=== PATIENT | female | born 1950 | race African-American/Black ===

== ENCOUNTER 2016-09-14 20:51 | Outpatient (CLI) | payer OTHER ==
[~2016-09-14 20:51] MED LIST: CYCL10TA35 PO; GABA300C2 PO; HUMALOG100 MG/ML SC; HYDR10TA47 PO; LANTUS100 MG/ML SC; METO50TA27 PO; PREDNISONE5 M1 PO; SIMV40TA57 PO
[2016-09-15] MEDS ORDERED: METO50TA27 PO (00:17)
[2016-09-15] MEDS ORDERED: OXYB5TAB56 PO (00:18)
[2016-09-15] MEDS ORDERED: FORTAMET1000 MG PO (00:18)
[2016-09-15] MEDS ORDERED: CYCL10TA35 PO (00:19)
[2016-09-15] MEDS ORDERED: GABA300C2 PO (00:19)
[2016-09-15] MEDS ORDERED: TEMA30CA18 PO (00:20)
[2016-09-15] MEDS ORDERED: TRAMADOL HCL E100 MG PO (00:20)
[2016-09-15] MEDS ORDERED: SMZ-TMP DS1 TAB OR (00:21)
[2016-09-15] MEDS ORDERED: SIMV40TA57 PO (00:22)
[2016-09-15] MEDS ORDERED: MELOXICAM15 MG OR (00:22)
[2016-09-15] MEDS ORDERED: ALLO300T23 PO (00:22)
[2016-09-15] MEDS ORDERED: TYLENOL 8 HOUR650 MG PO (00:22)
[2016-09-15] MEDS ORDERED: BUT OR (00:23)
[2016-09-15] MEDS ORDERED: CAFF OR (00:23)
[2016-09-15] MEDS ORDERED: ASA OR (00:23)
[2016-09-15] MEDS ORDERED: AMITRIPTYLIN50 MG PO (00:24)
[2016-09-15] MEDS ORDERED: CITALOPRAM40 MG PO (00:24)
[2016-09-15] MEDS ORDERED: ALAVERT10 M2 PO (00:25)
[2016-09-15] MEDS ORDERED: HYDROCHLOROT12.5 M1 PO (00:25)
[2016-09-15] MEDS ORDERED: LEVAQUIN500 MG OR (00:28)
[2016-09-15] MEDS ORDERED: ALBU90AE13 INH (00:29)
[2016-09-15] MEDS ORDERED: INSU100P SC (00:30)
[2016-09-15] MEDS ORDERED: INSUINJP SC (00:30)
== END 2016-09-14 21:10 | disposition short-term general hospital (02) ==
LOC: AMB 20:51
DX: R42 Dizziness and giddiness (principal); R11.2 Nausea with vomiting, unspecified; R10.84 Generalized abdominal pain
CPT/HCPCS: A0425; A0427

== ENCOUNTER → 2016-09-19 17:24 | Outpatient (CLI) | payer OTHER ==
[~2016-09-19 17:24] MED LIST changes: +ALAVERT10 M2 PO; +ALBU90AE13 INH; +ALLO300T23 PO; +AMITRIPTYLIN50 MG PO; +ASA OR; +BUT OR; +CAFF OR; +CITALOPRAM40 MG PO; +FORTAMET1000 MG PO; +HYDROCHLOROT12.5 M1 PO; +INSU100P SC; +INSUINJP SC; +LEVAQUIN500 MG OR; +MELOXICAM15 MG OR; +OXYB5TAB56 PO; +SMZ-TMP DS1 TAB OR; +TEMA30CA18 PO; +TRAMADOL HCL E100 MG PO; +TYLENOL 8 HOUR650 MG PO
== END | disposition home or self-care (01) ==
LOC: AMB 17:24
DX: R55 Syncope and collapse (principal)

== ENCOUNTER 2016-11-04 10:44 | Inpatient (IN) | payer OTHER ==
[~2016-11-04] VITALS: Ht 152.4 cm; Wt 93.9 kg
[2016-11-04] VITALS (21 sets, daily range): BP systolic 134–215; BP diastolic 58–139; TEMP 98–100.1; Ht 152.4 cm; Wt 93.9 kg
[2016-11-04 11:24] LABS: PLATELET COUNT 260 K/uL (152-353)
[2016-11-04 11:28] LABS: POTASSIUM 4.7 mmol/L (3.6-5.2)
[2016-11-04 13:47] LABS: PARTIAL THROMBOPLASTIN TIME 24.7 SECONDS (24.5-33.6)
[2016-11-04 16:32] LABS: POTASSIUM 4.6 mmol/L (3.6-5.2)
[2016-11-04] MEDS ORDERED: ACTOS15 MG OR (19:44)
[2016-11-04] MEDS ORDERED: HYDR10TA47A PO (19:46)
[2016-11-04] MEDS ORDERED: GRALISE600 MG OR (19:47)
[2016-11-04] MEDS ORDERED: MOBIC15 MG PO (19:48)
[2016-11-04 20:13] LABS: POTASSIUM 4.1 mmol/L (3.6-5.2)
[2016-11-05] VITALS (23 sets, daily range): BP systolic 107–174; BP diastolic 62–98; TEMP 97.9–99
[2016-11-05 07:26] LABS: PLATELET COUNT 189 K/uL (152-353)
[2016-11-05 07:35] LABS: POTASSIUM 4.5 mmol/L (3.6-5.2)
[2016-11-05] MEDS ORDERED: INSUINJP SC (17:18)
[2016-11-05] MEDS ORDERED: INSU100P SC (17:19)
[2016-11-06] VITALS (16 sets, daily range): BP systolic 110–176; BP diastolic 62–104; TEMP 97.5–98.2
[2016-11-06 10:58] LABS: PLATELET COUNT 183 K/uL (152-353)
[2016-11-06 11:10] LABS: POTASSIUM 4.3 mmol/L (3.6-5.2)
[2016-11-07 04:00] VITALS: BP 90/50; TEMP 97.6
[2016-11-07 04:18] LABS: PLATELET COUNT 189 K/uL (152-353)
[2016-11-07 04:34] LABS: POTASSIUM 3.8 mmol/L (3.6-5.2)
[2016-11-07 08:00] VITALS: BP 104/56; TEMP 97.4
[2016-11-07 12:00] VITALS: BP 90/52; TEMP 97.3
== END 2016-11-07 15:41 | disposition home or self-care (01) | DRG 638 ==
LOC: ED 10:44 → ICU 12:00 → MED/SURG 11-06 15:40
PROVIDERS: Internal Medicine
DX: E13.10 Other specified diabetes mellitus with ketoacidosis without coma (principal); N18.4 Chronic kidney disease, stage 4 (severe); N17.8 Other acute kidney failure; Z79.4 Long term (current) use of insulin; I12.9 Hypertensive chronic kidney disease with stage 1 through stage 4 chronic kidney disease, or unspecified chronic kidney disease; E11.22 Type 2 diabetes mellitus with diabetic chronic kidney disease; I16.0 Hypertensive urgency; E05.80 Other thyrotoxicosis without thyrotoxic crisis or storm; E83.42 Hypomagnesemia; R19.7 Diarrhea, unspecified
CPT/HCPCS: 36415; 36600; 80048; 80053; 81000; 81002; 82550; 82570; 82805; 82948; 82962; 83036; 83690; 83735; 84100; 84300; 84439; 84443; 84484; 85027; 85610; 85730; 86318; 87040; 93005; 94760; 96372; 96374; 96375; 99284; J0360; J1644; J1650; J1815; J1956; J2405; J3490

== ENCOUNTER 2016-11-10 14:00 | Outpatient (CLI) | payer OTHER ==
[~2016-11-10 14:00] MED LIST changes: +ACTOS15 MG OR; +GRALISE600 MG OR; +HYDR10TA47A PO; +MOBIC15 MG PO
== END 2016-11-10 14:18 | disposition short-term general hospital (02) ==
LOC: AMB 14:00
DX: E11.641 Type 2 diabetes mellitus with hypoglycemia with coma (principal)
CPT/HCPCS: A0425; A0427

== ENCOUNTER 2016-11-10 14:18 | Emergency (ER) | payer OTHER ==
[~2016-11-10] VITALS: Ht 152.4 cm; Wt 90.7 kg
[2016-11-10 14:36] VITALS: TEMP 97.9
[2016-11-10 14:51] LABS: PLATELET COUNT 254 K/uL (152-353)
[2016-11-10 17:54] VITALS: BP 1008/62
== END 2016-11-10 18:00 | disposition home or self-care (01) ==
LOC: ED 14:18
DX: E11.649 Type 2 diabetes mellitus with hypoglycemia without coma (principal); T38.3X5A Adverse effect of insulin and oral hypoglycemic [antidiabetic] drugs, initial encounter; Z79.4 Long term (current) use of insulin; R80.8 Other proteinuria; N18.9 Chronic kidney disease, unspecified
CPT/HCPCS: 36415; 80053; 81000; 83036; 85027; 93005; 99283

== ENCOUNTER 2017-01-26 11:08 | Outpatient (CLI) | payer OTHER | END 2017-01-26 12:10 | disposition home or self-care (01) | LOC: RAD 11:08 | DX: M17.11 Unilateral primary osteoarthritis, right knee (principal) ==

== ENCOUNTER 2017-04-26 15:31 | Inpatient (IN) | payer OTHER ==
[~2017-04-26] VITALS: Ht 152.4 cm; Wt 85.0 kg
[2017-04-26 17:48] LABS: PLATELET COUNT 215 K/uL (152-353)
[2017-04-26 19:56] VITALS: BP 188/89; TEMP 187.7; Ht 152.4 cm; Wt 85.0 kg
[2017-04-26 20:00] VITALS: BP 171/85; TEMP 98.9
[2017-04-27] VITALS: BP 161/76; TEMP 98.7
[2017-04-27 04:00] VITALS: BP 155/72; TEMP 98.9
[2017-04-27 05:20] LABS: PLATELET COUNT 206 K/uL (152-353)
[2017-04-27 05:38] LABS: POTASSIUM 5.9 mmol/L (3.6-5.2)
[2017-04-27 08:00] VITALS: BP 185/92; TEMP 98.4
[2017-04-27 12:00] VITALS: BP 130/82; TEMP 98.4
[2017-04-27 16:00] VITALS: BP 197/96; TEMP 98.8
--- NOTE | 2017-04-27 17:04 | NUR ---
FSBS MACHINE READS HIGH. WILL VERIFY WITH JEWEL. ROSANNA EVANGELISTA DEPUTY SHERIFF K9 HANDLER NOTIFIED. WILL COVER WITH INSULIN 10 UNITS REG.
[2017-04-27 20:00] VITALS: BP 166/87; TEMP 98.3
[2017-04-28] VITALS: BP 120/69; TEMP 97.6
[2017-04-28 04:00] VITALS: BP 116/68; TEMP 97.9
[2017-04-28 06:21] LABS: PLATELET COUNT 213 K/uL (152-353)
[2017-04-28 06:52] LABS: POTASSIUM 4.3 mmol/L (3.6-5.2)
[2017-04-28 08:00] VITALS: BP 149/73; TEMP 98.3
[2017-04-28 12:00] VITALS: BP 128/72; TEMP 98
[2017-04-28 16:00] VITALS: BP 139/7; TEMP 98
[2017-04-28 20:29] VITALS: BP 163/74; TEMP 97.6
[2017-04-29] VITALS: BP 116/69; TEMP 97.8
[2017-04-29 04:00] VITALS: BP 143/74; TEMP 97.7
[2017-04-29 07:43] LABS: PLATELET COUNT 183 K/uL (152-353)
[2017-04-29 08:00] VITALS: BP 132/60; TEMP 97.8
[2017-04-29 12:00] VITALS: BP 132/64; TEMP 98.3
[2017-04-29] MEDS ORDERED: ALBUTEROL0.083 % IN (14:28)
[2017-04-29] MEDS ORDERED: LANTUS100 MG/ML SC (14:28)
== END 2017-04-29 15:25 | disposition home or self-care (01) | DRG 195 ==
LOC: MED/SURG 15:31
PROVIDERS: ADMIT Family Medicine
DX: J16.8 Pneumonia due to other specified infectious organisms (principal); R06.02 Shortness of breath; E11.9 Type 2 diabetes mellitus without complications; I10 Essential (primary) hypertension; Z79.4 Long term (current) use of insulin
CPT/HCPCS: 36415; 36600; 80053; 82805; 82947; 82948; 83880; 85027; 85379; 87040; 93005; 94640; 94664; 94760; 96372; A9540; A9567; J1644; J1815; J2930

== ENCOUNTER 2017-06-02 09:57 | Observation (INO) | payer OTHER ==
[~2017-06-02] VITALS: Ht 152.4 cm; Wt 86.7 kg
[~2017-06-02 09:57] MED LIST changes: +ALBUTEROL0.083 % IN
[2017-06-02 13:20] LABS: PLATELET COUNT 254 K/uL (152-353)
[2017-06-02 13:55] LABS: POTASSIUM 4.3 mmol/L (3.6-5.2)
[2017-06-02 13:57] VITALS: BP 160/97; TEMP 98.2; Ht 152.4 cm; Wt 86.7 kg
[2017-06-02] MEDS ORDERED: DONE5TAB PO (15:07)
[2017-06-02] MEDS ORDERED: CYCL10TA35 PO (15:18)
[2017-06-02] MEDS ORDERED: HYDR-3182 PO (15:25)
[2017-06-02 16:00] VITALS: BP 134/92; TEMP 98.6
[2017-06-02 19:53] VITALS: BP 150/79; TEMP 98.7
[2017-06-03] VITALS: BP 132/72; TEMP 98.4
[2017-06-03 03:54] VITALS: BP 116/75; TEMP 98.8
[2017-06-03 06:31] LABS: PLATELET COUNT 227 K/uL (152-353)
[2017-06-03 06:42] LABS: POTASSIUM 4.3 mmol/L (3.6-5.2)
[2017-06-03 07:40] VITALS: BP 132/71; TEMP 98.5
== END 2017-06-03 12:00 | disposition home or self-care (01) ==
LOC: MED/SURG 09:57
PROVIDERS: Emergency Medicine; ADMIT Nurse Practitioner
DX: K52.89 Other specified noninfective gastroenteritis and colitis (principal); I12.9 Hypertensive chronic kidney disease with stage 1 through stage 4 chronic kidney disease, or unspecified chronic kidney disease; E11.22 Type 2 diabetes mellitus with diabetic chronic kidney disease; N18.3 Chronic kidney disease, stage 3 (moderate); E86.0 Dehydration; E11.42 Type 2 diabetes mellitus with diabetic polyneuropathy
CPT/HCPCS: 80053; 81000; 82948; 85027; 93005; 96372; 96374; 99220; G0378; G0379; J1815; J2405

== ENCOUNTER 2017-06-24 12:33 | Outpatient (CLI) | payer OTHER ==
[~2017-06-24 12:33] MED LIST changes: +DONE5TAB PO; +HYDR-3182 PO
== END 2017-06-24 22:49 | disposition home or self-care (01) ==
LOC: RAD 12:33
DX: M54.89 Other dorsalgia (principal); M85.88 Other specified disorders of bone density and structure, other site

== ENCOUNTER 2017-07-25 15:39 | Emergency (ER) | payer OTHER ==
[~2017-07-25] VITALS: Ht 152.4 cm; Wt 90.7 kg
[2017-07-25 15:44] VITALS: TEMP 98.1
[2017-07-25 17:19] LABS: PLATELET COUNT 203 K/uL (152-353)
[2017-07-25 18:40] VITALS: BP 178/82
== END 2017-07-25 18:44 | disposition home or self-care (01) ==
LOC: ED 15:39
PROVIDERS: Specialist
DX: N93.8 Other specified abnormal uterine and vaginal bleeding (principal); R31.9 Hematuria, unspecified
CPT/HCPCS: 36415; 81000; 85027; 99283

== ENCOUNTER 2017-09-01 09:51 | Outpatient (CLI) | payer OTHER | END 2017-09-01 19:26 | disposition home or self-care (01) | LOC: RAD 09:51 | DX: M25.512 Pain in left shoulder (principal) ==

== ENCOUNTER 2017-10-13 10:17 | Emergency (ER) | payer OTHER ==
[~2017-10-13] VITALS: Ht 152.4 cm; Wt 93.0 kg
[~2017-10-13 10:17] MED LIST changes: +CIPRO500 MG PO; +HUMALOG KW200 UNIT/M SC; +LEVAQUIN250 MG PO; +LEVEMIR FL100 UNIT/M SC; +METR250T19 PO; +ROPINIROLE0.5 MG; +SIMV40TA57
[2017-10-13 10:24] VITALS: TEMP 98.2
[2017-10-13 11:40] LABS: PLATELET COUNT 256 K/uL (152-353)
[2017-10-13 11:47] LABS: POTASSIUM 5.6 mmol/L (3.6-5.2)
[2017-10-13 12:00] VITALS: BP 167/87
[2017-12-19] MEDS ORDERED: ABILIFY 10MG TAB PO (19:00)
[2017-12-19] MEDS ORDERED: TRAZ50TA36 PO (19:00)
[2017-12-19] MEDS ORDERED: ESCI10TA PO (19:00)
== END 2017-10-13 12:03 | disposition home or self-care (01) ==
LOC: ED 10:17
DX: N28.1 Cyst of kidney, acquired (principal); R11.2 Nausea with vomiting, unspecified; N23 Unspecified renal colic
CPT/HCPCS: 36415; 80053; 81000; 85027; 99283

== ENCOUNTER 2017-12-16 10:41 | Emergency (ER) | payer OTHER ==
[2017-12-16 14:34] LABS: PARTIAL THROMBOPLASTIN TIME 23.6 SECONDS (24.5-33.6)
[2017-12-16 14:38] LABS: PLATELET COUNT 294 K/uL (152-353)
[2017-12-16] MEDS ORDERED: AMBIEN5 MG PO (17:26)
[2017-12-16] MEDS ORDERED: CETI10TA PO (17:35)
[2017-12-16] MEDS ORDERED: FINGERSTIX (17:39)
[2017-12-19] MEDS ORDERED: ESCI10TA PO (19:00)
[2017-12-19] MEDS ORDERED: ABILIFY 10MG TAB PO (19:00)
[2017-12-19] MEDS ORDERED: TRAZ50TA36 PO (19:00)
== END 2017-12-16 14:10 | disposition other institution (70) ==
LOC: ED 10:41
DX: F32.89 Other specified depressive episodes (principal); Z04.6 Encounter for general psychiatric examination, requested by authority; R45.851 Suicidal ideations
CPT/HCPCS: 36415; 80053; 80307; 80329; 81000; 85027; 85610; 85730; 93005; 99285

== ENCOUNTER 2018-05-02 11:22 | Outpatient (CLI) | payer OTHER ==
[~2018-05-02 11:22] MED LIST changes: +ABILIFY 10MG TAB PO; +AMBIEN5 MG PO; +CETI10TA PO; +ESCI10TA PO; +FINGERSTIX; +TRAZ50TA36 PO
[2018-05-02 12:53] LABS: PLATELET COUNT 288 K/uL (152-353)
== END 2018-05-02 19:43 | disposition home or self-care (01) ==
LOC: LABW 11:22
PROVIDERS: Family Medicine
DX: J20.9 Acute bronchitis, unspecified (principal); R31.21 Asymptomatic microscopic hematuria; E78.00 Pure hypercholesterolemia, unspecified; N18.9 Chronic kidney disease, unspecified; I10 Essential (primary) hypertension; E55.9 Vitamin D deficiency, unspecified; R73.9 Hyperglycemia, unspecified
CPT/HCPCS: 36415; 80053; 80061; 81000; 82306; 83036; 84439; 84443; 84550; 85027

== ENCOUNTER 2018-07-15 20:55 | Inpatient (IN) | payer OTHER ==
[~2018-07-15] VITALS: Ht 152.4 cm; Wt 89.1 kg
[2018-07-15 22:10] VITALS: BP 183/80; TEMP 97.3
[2018-07-16] VITALS (13 sets, daily range): BP systolic 150–179; BP diastolic 68–92; TEMP 97.7–98.2; Ht 152.4 cm; Wt 89.1 kg
[2018-07-16 00:08] LABS: PLATELET COUNT 251 K/uL (152-353)
[2018-07-16 00:41] LABS: POTASSIUM 6.2 mmol/L (3.6-5.2)
--- NOTE | 2018-07-16 06:37 | NUR ---
0230-RECEIVED PATIENT FROM ER VIA W/C. PATIENT IS ALERT AND ORIENTED X'S4; ACCOMPANIED BY HER . PATIENT HAS TWO IVF'S, NS @ 100 AND INSULIN DRIP (03/22; 100UTS REGULAR IN 100CC NS @ 5/HR). LUNGS ARE CTA BILATERALLY, BOWEL SOUNDS ARE NORMOACTIVE ALL FOUR QUADS; NO DEPENDANT EDEMA NOTED AT THIS TIME. RASH NOTED ON FACE AROUND EYES AND CHEEKS-PATIENT STATES SHE HASN'T HAD A PROBLEM WITH POISON MARGOT IN >30 YEARS. ASSISTED PATIENT INTO GOWN AND INTO BED WITHOUT PROBLEM. NAD NOTED.
[2018-07-16 06:38] LABS: PLATELET COUNT 242 K/uL (152-353)
--- NOTE | 2018-07-16 07:16 | NUR ---
RECIEVED REPORT PT RESTING QUIETLY EYES CLOSED RESP EVEN. IV FLUIDS INFUSING WITHOUT DIFFICULTY. D 5 NS AT 100 ML HR AND INSULIN DRIP AT 5 UNITS HR. BLOOD SUGAR SINCE 0400 AVERAGE AROUND 250. BLOOD SUGAR AT THIS TIME 237. CHANGED RATE IV FLUIDS D5 NS TO 83 ML HR. TO REACH TARGET RANGE 100-150 BLOOD SUGAR. PT AWAKEN EASILY NO COMPLAINTS.
[2018-07-16] MEDS ORDERED: ALPR0.5T24 PO (07:48)
[2018-07-16] MEDS ORDERED: ESCITALOPRAM10 MG PO (07:51)
[2018-07-16] MEDS ORDERED: CLON0.1T16 PO (07:54)
[2018-07-16] MEDS ORDERED: CEPHALEXIN500 MG PO (07:59)
[2018-07-16] MEDS ORDERED: HYDR10TA47A PO (08:06)
[2018-07-16] MEDS ORDERED: GLIP10TA55 PO (08:07)
[2018-07-16] MEDS ORDERED: VESICARE5 MG PO (08:12)
[2018-07-16] MEDS ORDERED: FAMOTIDINE40 MG PO (08:15)
[2018-07-16] MEDS ORDERED: ABACAVIR SULFAT1 TAB PO (08:18)
[2018-07-16] MEDS ORDERED: HYDROXYZINE HYD25 MG PO (08:20)
[2018-07-16] MEDS ORDERED: METH4PAK3 PO (08:37)
[2018-07-16] MEDS ORDERED: TRIA0.1C5 TOP (08:39)
[2018-07-16] MEDS ORDERED: TOUJEO SOL300 UNIT/M SC (08:47)
[2018-07-16] MEDS ORDERED: VICTOZA18 MG/3 ML SC (08:48)
[2018-07-16] MEDS ORDERED: NOVOLOG100 UNIT/M SC (08:49)
--- NOTE | 2018-07-16 08:55 | NUR ---
PATIENT UP IN BED SERVED BREAKFAST TRAY AM CARE. DR VANN HERE TO SEE PATIENT. CHECKED PATIENT, RECIEVED NEW ORDERS. HOME MEDS UPDATED. PATIENT TO GO TO MED SURG FLOOR. CONTINUE TO MONITOR BLOOD SUGAR USING HER INSULIN AND COVERING WITH SSI ACC CHECKS TO CAHANGE TO AC AND HS , PRN AFTER DRIP STOPPED.
--- NOTE | 2018-07-16 10:38 | NUR ---
Patient was admitted with Hyperglycemia and Hyperkalemia and is on a 1800 calorie ADA diet plan and is 60" and IBW 100+/-10% and is 198% IBW and BMI at 38.66 and is Class II Obesity. KCAL needs for IBW 1400, pro 45-55 grams and fluid 1400 and for weight Kcal needs = 5859-5960, pro 90-100 grams and fluids 5787-6812 x 30 and x 25 = [phone]. Recommend: 1- add High Fiber
--- NOTE | 2018-07-16 10:40 | NUR ---
MEDS PROFILED STOPPED INSULIN DRIP STOPPED D5, CHANGED IV FLUIDS TO 1/2 NS AT 100 ML HR. LAST BLOOD SUGAR 290, PT RECIEVED INSULIN NOVOLOG 15 UNITS SQ AND VICTOZA O.6 MG SQ, RECIEVED PO MEDS ORDERED. RECIEVED PO GLIPIZIDE. PATIENT TO BE MOVED TO MED SURG FLOOR.
--- NOTE | 2018-07-16 11:15 | NUR ---
PT'S HERE TO VIST. PT ASSISTED TO W/C MOVED TO ROOM 1108. PT AND ORIENTED TO ROOM. REPORT TO [id number] ROEGRS RN, PATIENT DISCHARGED FROM ICU. IV BEEPING CHECKED SITE GOOD BLOOD RETURN, FLOWS EASILY, VERY POSITIONAL WHEN PT BENDS WRIST. PATIENT UP TO BATHROOM OBTAINED CLEAN CATCH URINE SPEC TO LAB ORDERED.
[2018-07-17] VITALS: BP 161/89; TEMP 98.2
[2018-07-17 04:00] VITALS: BP 126/79; TEMP 98
[2018-07-17 05:16] LABS: PLATELET COUNT 245 K/uL (152-353)
[2018-07-17 06:24] LABS: POTASSIUM 4.4 mmol/L (3.6-5.2)
[2018-07-17 08:00] VITALS: BP 145/76; TEMP 98.6
[2018-07-17 12:00] VITALS: BP 144/86; TEMP 98.1
[2018-07-17 16:00] VITALS: BP 129/69; TEMP 97.9
--- NOTE | 2018-07-17 19:17 | NUR ---
PT DC'D HOME. IV DC'D WITHOUT ISSUE NO REDNESS NOTED. WRITTEN AND VERBAL DC INSTRUCTIONS GIVEN. PT VERBALIZED UNDERSTANDING. PT INSTRUCTED TO FOLLOW UP WITH PCP IN 2-3 DAYS. PT STATES "SHE HAS AN APPOINTMENT WEDNESDAY". PT INSTRUCTED TO SEEK MEDICAL ATTENTION IF DIZZINESS, CHEST PAIN, OR IF PT IS UNABLE TO GET BLOOD SUGAR UNDER CONTROL. PT VERBALIZED UNDERSTANDING. PT DC'D HOME VIA WHEELCHAIR WITH DAUGHTER.
== END 2018-07-17 19:18 | disposition home or self-care (01) | DRG 639 ==
LOC: ED 20:55 → ICU 07-16 01:00 → MED/SURG 07-16 11:10
PROVIDERS: Emergency Medicine; ADMIT Emergency Medicine
DX: E09.65 Drug or chemical induced diabetes mellitus with hyperglycemia (principal); E11.00 Type 2 diabetes mellitus with hyperosmolarity without nonketotic hyperglycemic-hyperosmolar coma (NKHHC); T38.0X5A Adverse effect of glucocorticoids and synthetic analogues, initial encounter; E86.0 Dehydration; J44.9 Chronic obstructive pulmonary disease, unspecified; E11.22 Type 2 diabetes mellitus with diabetic chronic kidney disease; I12.9 Hypertensive chronic kidney disease with stage 1 through stage 4 chronic kidney disease, or unspecified chronic kidney disease; N18.3 Chronic kidney disease, stage 3 (moderate); F32.89 Other specified depressive episodes; Z79.4 Long term (current) use of insulin; Y92.89 Other specified places as the place of occurrence of the external cause
CPT/HCPCS: 36415; 36600; 80053; 81000; 82805; 85027; 93005; 96360; 96372; 99284; J1650; J1815; J2930; J3490

== ENCOUNTER 2018-08-12 11:17 | Outpatient (CLI) | payer OTHER ==
[~2018-08-12 11:17] MED LIST changes: +ABACAVIR SULFAT1 TAB PO; +ALPR0.5T24 PO; +CEPHALEXIN500 MG PO; +CLON0.1T16 PO; +ESCITALOPRAM10 MG PO; +FAMOTIDINE40 MG PO; +GLIP10TA55 PO; +HYDROXYZINE HYD25 MG PO; +METH4PAK3 PO; +NOVOLOG100 UNIT/M SC; +TOUJEO SOL300 UNIT/M SC; +TRIA0.1C5 TOP; +VESICARE5 MG PO; +VICTOZA18 MG/3 ML SC
[2018-08-12 11:58] LABS: PLATELET COUNT 311 K/uL (152-353)
[2018-08-12 12:18] LABS: POTASSIUM 5.5 mmol/L (3.6-5.2)
== END 2018-08-12 23:20 | disposition home or self-care (01) ==
LOC: LABW 11:17
PROVIDERS: Family Medicine
DX: M62.81 Muscle weakness (generalized) (principal); N18.3 Chronic kidney disease, stage 3 (moderate); I12.9 Hypertensive chronic kidney disease with stage 1 through stage 4 chronic kidney disease, or unspecified chronic kidney disease
CPT/HCPCS: 36415; 80053; 81000; 83735; 85027

== ENCOUNTER 2018-08-22 09:44 | Outpatient (CLI) | payer OTHER | END 2018-08-22 19:47 | disposition home or self-care (01) | LOC: LAB 09:44 | DX: K52.89 Other specified noninfective gastroenteritis and colitis (principal) | CPT/HCPCS: 87015; 87045; 87324; 87328; 87329; 87449; 87899 ==

== ENCOUNTER 2018-08-30 10:54 | Outpatient (CLI) | payer OTHER | END 2018-08-30 23:02 | disposition home or self-care (01) | LOC: MAMMO 10:54 | DX: Z12.31 Encounter for screening mammogram for malignant neoplasm of breast (principal) ==

== ENCOUNTER 2018-09-13 09:13 | Outpatient (CLI) | payer OTHER ==
[2018-09-13 09:48] LABS: PLATELET COUNT 220 K/uL (152-353)
[2018-09-13 10:08] LABS: POTASSIUM 5.4 mmol/L (3.6-5.2)
== END 2018-09-13 19:44 | disposition home or self-care (01) ==
LOC: LABW 09:13
PROVIDERS: Family Medicine
DX: N18.3 Chronic kidney disease, stage 3 (moderate) (principal); M10.9 Gout, unspecified; F32.0 Major depressive disorder, single episode, mild; K21.9 Gastro-esophageal reflux disease without esophagitis; E83.42 Hypomagnesemia; E11.9 Type 2 diabetes mellitus without complications
CPT/HCPCS: 36415; 80053; 80061; 81000; 82306; 83036; 83735; 84439; 84443; 84550; 85027; 93005

== ENCOUNTER 2018-10-26 11:36 | Day surgery (SDC) | payer OTHER ==
[2018-10-26 12:55] LABS: PLATELET COUNT 253 K/uL (152-353)
[2018-10-26 13:02] LABS: POTASSIUM 4.9 mmol/L (3.6-5.2)
== END 2018-10-26 15:40 | disposition home or self-care (01) ==
LOC: OR 11:36
PROVIDERS: Internal Medicine Gastroenterology
PROC: 0DJD8ZZ Inspection of Lower Intestinal Tract, Via Natural or Artificial Opening Endoscopic (ICD-10-PCS; principal; 2018-10-26)
DX: K57.30 Diverticulosis of large intestine without perforation or abscess without bleeding (principal); K64.8 Other hemorrhoids; Z12.11 Encounter for screening for malignant neoplasm of colon
CPT/HCPCS: 80053; 85027; J2001; J2250; J2704; J3490

== ENCOUNTER 2019-02-11 17:08 | Emergency (ER) | payer OTHER ==
[~2019-02-11] VITALS: Ht 152.4 cm; Wt 89.4 kg
[2019-02-11 18:19] LABS: PLATELET COUNT 290 K/uL (152-353)
[2019-02-11 18:35] LABS: SODIUM 139 mmol/L (136-145)
[2019-02-11 18:43] LABS: POTASSIUM 6.3 mmol/L (3.6-5.2)
[2019-02-11 21:54] LABS: PARTIAL THROMBOPLASTIN TIME 22.9 SECONDS (24.5-33.6)
[2019-02-11 22:00] VITALS: TEMP 98.3
[2019-02-11 22:26] VITALS: BP 186/78
== END 2019-02-11 22:37 | disposition still patient (30) ==
LOC: ED 17:08
PROVIDERS: Emergency Medicine
DX: R06.09 Other forms of dyspnea (principal); R79.89 Other specified abnormal findings of blood chemistry; E66.8 Other obesity; E83.42 Hypomagnesemia; R07.89 Other chest pain
CPT/HCPCS: 80053; 83735; 83880; 84132; 84484; 85027; 85379; 85610; 85730; 87502; 93005; 94664; 96360; 96374; 96375; 99284; J1644; J2930; J7120

== ENCOUNTER 2019-03-30 12:02 | Outpatient (CLI) | payer OTHER | END 2019-03-30 22:33 | disposition home or self-care (01) | LOC: LABW 12:02 | DX: F41.8 Other specified anxiety disorders (principal); C43.9 Malignant melanoma of skin, unspecified; Z11.4 Encounter for screening for human immunodeficiency virus [HIV]; N39.0 Urinary tract infection, site not specified | CPT/HCPCS: 36415; 87535; G0432 ==

== ENCOUNTER 2019-05-11 13:04 | Outpatient (CLI) | payer OTHER ==
[2019-05-11 14:03] LABS: PLATELET COUNT 297 K/uL (152-353)
[2019-05-11 14:21] LABS: POTASSIUM 4.8 mmol/L (3.6-5.2)
== END 2019-05-11 19:11 | disposition home or self-care (01) ==
LOC: LABW 13:04
PROVIDERS: Internal Medicine
DX: E11.22 Type 2 diabetes mellitus with diabetic chronic kidney disease (principal); N18.4 Chronic kidney disease, stage 4 (severe)
CPT/HCPCS: 36415; 80053; 81000; 82306; 82330; 82570; 83036; 83735; 83970; 84100; 84155; 84439; 84443; 85027

== ENCOUNTER 2019-07-24 09:40 | Outpatient (CLI) | payer OTHER ==
[2019-07-24 10:40] LABS: PLATELET COUNT 401 K/uL (152-353)
[2019-07-24 11:09] LABS: POTASSIUM 5.8 mmol/L (3.6-5.2)
== END 2019-07-24 19:26 | disposition home or self-care (01) ==
LOC: LABW 09:40
PROVIDERS: Internal Medicine
DX: E11.22 Type 2 diabetes mellitus with diabetic chronic kidney disease (principal); N18.4 Chronic kidney disease, stage 4 (severe); E55.9 Vitamin D deficiency, unspecified; R82.998 Other abnormal findings in urine
CPT/HCPCS: 36415; 80053; 81000; 82306; 82570; 83036; 83735; 84100; 84155; 84443; 85027; 87086; 87088

== ENCOUNTER 2019-07-28 19:16 | Emergency (ER) | payer OTHER ==
[~2019-07-28] VITALS: Ht 152.4 cm; Wt 86.2 kg
[2019-07-28 19:25] VITALS: TEMP 97.5
[2019-07-28 20:29] LABS: POTASSIUM 5.1 mmol/L (3.6-5.2)
[2019-07-28 20:36] LABS: PLATELET COUNT 389 K/uL (152-353)
[2019-07-28 23:26] VITALS: BP 133/56
== END 2019-07-28 23:55 | disposition short-term general hospital (02) ==
LOC: ED 19:16
PROVIDERS: Family Medicine
DX: N28.89 Other specified disorders of kidney and ureter (principal); N13.39 Other hydronephrosis
CPT/HCPCS: 80053; 81000; 85027; 96360; 96365; 96374; 96375; 99285; J2175; J2405

== ENCOUNTER 2019-09-19 11:24 | Outpatient (CLI) | payer OTHER ==
[~2019-09-19] VITALS: Ht 152.4 cm; Wt 72.1 kg
[2019-09-19 12:15] VITALS: BP 154/75; TEMP 97.5
[2019-09-19 12:57] LABS: PLATELET COUNT 584 K/uL (152-353)
[2019-09-19 13:20] LABS: POTASSIUM 5.7 mmol/L (3.6-5.2)
== END 2019-09-20 13:35 | disposition home or self-care (01) ==
LOC: LAB 11:24 → INF 11:24
PROVIDERS: Internal Medicine Endocrinology, Diabetes & Metabolism
DX: E11.22 Type 2 diabetes mellitus with diabetic chronic kidney disease (principal); N18.4 Chronic kidney disease, stage 4 (severe); E55.9 Vitamin D deficiency, unspecified
CPT/HCPCS: 36415; 36591; 80053; 81000; 82306; 82570; 83036; 83735; 84100; 84155; 84439; 84443; 85027; 96361; 96374; J2405

== ENCOUNTER 2019-10-09 08:47 | Outpatient (CLI) | payer OTHER ==
[2019-10-09] MEDS ORDERED: SODIUM BICAR650 MG PO (19:37)
[2019-10-09] MEDS ORDERED: VITAMIN D50000 UNIT PO (19:38)
[2019-10-09] MEDS ORDERED: LIPITOR40 MG PO (19:39)
[2019-10-09] MEDS ORDERED: TOUJEO MAX300 UNIT/M SC (19:40)
[2019-10-09] MEDS ORDERED: FURO40TA93 PO (19:41)
[2019-10-09] MEDS ORDERED: PROMETHAZINE HY25 MG PO (19:43)
[2019-10-09] MEDS ORDERED: MECLIZINE25 MG PO (19:43)
[2019-10-09] MEDS ORDERED: ONDA4TAB3 PO (19:44)
[2019-10-09] MEDS ORDERED: MORP2INJ PO (19:45)
[2019-10-09] MEDS ORDERED: PREGABALIN50 MG PO (19:46)
== END 2019-10-09 19:27 | disposition home or self-care (01) ==
LOC: MRI 08:47
DX: N28.89 Other specified disorders of kidney and ureter (principal)

== ENCOUNTER 2019-10-09 10:04 | Inpatient (IN) | payer OTHER ==
[~2019-10-09] VITALS: Ht 154.9 cm; Wt 71.2 kg
[2019-10-09 10:11] VITALS: BP 110/72; TEMP 97.8
[2019-10-09 10:53] LABS: PLATELET COUNT 478 K/uL (152-353)
[2019-10-09 11:09] LABS: SODIUM 140 mmol/L (136-145)
[2019-10-09 16:10] VITALS: BP 158/80
[2019-10-09 16:18] VITALS: BP 158/80
[2019-10-09 18:02] VITALS: BP 150/85; TEMP 99.1; Ht 154.9 cm; Wt 71.2 kg
[2019-10-09] MEDS ORDERED: SODIUM BICAR650 MG PO (19:37)
[2019-10-09] MEDS ORDERED: VITAMIN D50000 UNIT PO (19:38)
[2019-10-09] MEDS ORDERED: LIPITOR40 MG PO (19:39)
[2019-10-09] MEDS ORDERED: TOUJEO MAX300 UNIT/M SC (19:40)
[2019-10-09] MEDS ORDERED: FURO40TA93 PO (19:41)
[2019-10-09] MEDS ORDERED: PROMETHAZINE HY25 MG PO (19:43)
[2019-10-09] MEDS ORDERED: MECLIZINE25 MG PO (19:43)
[2019-10-09] MEDS ORDERED: ONDA4TAB3 PO (19:44)
[2019-10-09] MEDS ORDERED: MORP2INJ PO (19:45)
[2019-10-09] MEDS ORDERED: PREGABALIN50 MG PO (19:46)
[2019-10-09 20:00] VITALS: BP 161/73; TEMP 98.4
[2019-10-09 23:44] VITALS: BP 148/72; TEMP 98.6
[2019-10-10 04:00] VITALS: BP 154/83; TEMP 97.9
[2019-10-10 05:53] LABS: PLATELET COUNT 448 K/uL (152-353)
[2019-10-10 06:11] LABS: POTASSIUM 5.1 mmol/L (3.6-5.2)
[2019-10-10 08:00] VITALS: BP 137/76; TEMP 99.6
[2019-10-10 12:00] VITALS: BP 161/84; TEMP 98.7
[2019-10-10 16:00] VITALS: BP 159/79; TEMP 98.2
[2019-10-10 20:00] VITALS: BP 152/83; TEMP 98.5
[2019-10-11] VITALS: BP 165/81; TEMP 98.8
[2019-10-11 04:00] VITALS: BP 131/67; TEMP 98.1
[2019-10-11 08:00] VITALS: BP 151/72; TEMP 98.1
[2019-10-11 12:00] VITALS: BP 160/83; TEMP 98.3
[2019-10-11 12:08] LABS: PLATELET COUNT 445 K/uL (152-353)
[2019-10-11 12:38] LABS: POTASSIUM 4.8 mmol/L (3.6-5.2)
== END 2019-10-11 16:10 | disposition home or self-care (01) | DRG 699 ==
LOC: ED 10:04 → MED/SURG 16:12
PROVIDERS: Internal Medicine; ADMIT General Practice
DX: E11.22 Type 2 diabetes mellitus with diabetic chronic kidney disease (principal); N39.0 Urinary tract infection, site not specified; N17.8 Other acute kidney failure; N18.4 Chronic kidney disease, stage 4 (severe); I12.9 Hypertensive chronic kidney disease with stage 1 through stage 4 chronic kidney disease, or unspecified chronic kidney disease; N28.89 Other specified disorders of kidney and ureter; F03.90 Unspecified dementia, unspecified severity, without behavioral disturbance, psychotic disturbance, mood disturbance, and anxiety; E83.42 Hypomagnesemia; E87.5 Hyperkalemia
CPT/HCPCS: 36415; 80048; 80053; 81000; 82570; 83735; 84132; 84300; 84484; 85027; 87086; 87088; 93005; 96360; 96361; 96365; 96366; 99284; J0610; J0696; J3475

== ENCOUNTER 2019-10-17 11:32 | Emergency (ER) | payer OTHER ==
[~2019-10-17] VITALS: Ht 154.9 cm; Wt 71.2 kg
[2019-10-17 11:32] VITALS: TEMP 98.7
[~2019-10-17 11:32] MED LIST changes: +FURO40TA93 PO; +LIPITOR40 MG PO; +MECLIZINE25 MG PO; +MORP2INJ PO; +ONDA4TAB3 PO; +PREGABALIN50 MG PO; +PROMETHAZINE HY25 MG PO; +SODIUM BICAR650 MG PO; +TOUJEO MAX300 UNIT/M SC; +VITAMIN D50000 UNIT PO
[2019-10-17 13:11] LABS: POTASSIUM 5.3 mmol/L (3.6-5.2); SODIUM 140 mmol/L (136-145)
[2019-10-17 15:49] LABS: PLATELET COUNT 415 K/uL (152-353)
[2019-10-17 15:50] VITALS: BP 160/74
== END 2019-10-17 18:20 | disposition home or self-care (01) ==
LOC: ED 11:32
PROVIDERS: Family Medicine
DX: N39.0 Urinary tract infection, site not specified (principal); N28.9 Disorder of kidney and ureter, unspecified; E11.65 Type 2 diabetes mellitus with hyperglycemia; Z79.4 Long term (current) use of insulin
CPT/HCPCS: 80053; 81000; 84484; 85027; 87088; 93005; 96365; 99284; J0696